=== PATIENT | male | born 1975 | race Caucasian/White ===

== ENCOUNTER 2016-12-26 21:49 | Emergency (ER) | payer MEDICAID | END 2016-12-27 00:56 | disposition home or self-care (01) | DX: R07.89 Other chest pain (principal); I25.2 Old myocardial infarction; Z95.5 Presence of coronary angioplasty implant and graft; Z79.02 Long term (current) use of antithrombotics/antiplatelets; E11.9 Type 2 diabetes mellitus without complications; Z87.891 Personal history of nicotine dependence ==

== ENCOUNTER 2017-01-09 10:18 | Emergency (ER) | payer MEDICAID | END 2017-01-09 12:32 | disposition home or self-care (01) | DX: B86 Scabies (principal); E11.9 Type 2 diabetes mellitus without complications; J45.909 Unspecified asthma, uncomplicated; Z87.891 Personal history of nicotine dependence; I25.2 Old myocardial infarction; Z95.5 Presence of coronary angioplasty implant and graft; Z79.02 Long term (current) use of antithrombotics/antiplatelets ==

== ENCOUNTER 2017-12-10 19:59 | Emergency (ER) | payer SELFPAY ==
[2017-12-10 20:35] LABS: BILIRUBIN,URINE NEGATIVE (NEGATIVE); GLUCOSE, URINE (UA) >=1000 mg/dL (NEGATIVE); KETONES,URINE (UA) NEGATIVE (NEGATIVE); LEUKOCYTE ESTERASE, URINE NEGATIVE (NEGATIVE); NITRITE,URINE NEGATIVE (NEGATIVE); OCCULT BLOOD,URINE SMALL (NEGATIVE); PH,URINE 6.5 PH (5.0-7.5); PROTEIN,URINE 30 mg/dL (NEGATIVE); UROBILINOGEN,URINE 0.2 (NORMAL) E.U./dL (NORMAL)
[2017-12-10 20:36] LABS: BASOPHILS # (AUTO) 0.1 10^3/uL (0.0-0.1); BASOPHILS % (AUTO) 1.2 %; EOSINOPHILS # (AUTO) 0.2 10^3/uL (0.0-0.7); EOSINOPHILS % (AUTO) 2.2 %; HGB - HEMOGLOBIN 15.6 g/dL (14.0-18.0); LYMPHOCYTES % (AUTO) 33.8 %; MEAN CORPUSCULAR HEMOGLOBIN 27.2 pg (27.0-31.0); MEAN CORPUSCULAR HGB CONC 33.6 g/dL (32.0-36.0); MEAN CORPUSCULAR VOLUME 80.9 fL (80.0-94.0); MEAN PLATELET VOLUME 7.6 fL (7.4-11.4); MONOCYTES # (AUTO) 0.5 10^3/uL (0.0-1.0); MONOCYTES % (AUTO) 5.4 %; NEUTROPHILS # (AUTO) 5.1 10^3/uL (1.5-6.6); NEUTROPHILS % (AUTO) 57.4 %; PLT - PLATELET COUNT 293 10^3/uL (130-450); RED BLOOD COUNT 5.74 10^6/uL (4.70-6.10); RED CELL DISTRIBUTION WIDTH 13.5 % (12.0-15.0); WHITE BLOOD COUNT 8.9 x10^3/uL (4.8-10.8)
[2017-12-10 20:39] LABS: CLARITY,URINE CLEAR (CLEAR)
[2017-12-10 20:51] LABS: ALBUMIN 3.9 g/dL (3.2-5.5); ALBUMIN/GLOBULIN RATIO 1.2 (1.0-2.2); BILIRUBIN,TOTAL 0.5 mg/dL (0.2-1.0); CALCIUM 8.9 mg/dL (8.5-10.3); TOTAL PROTEIN 7.1 g/dL (6.7-8.2)
[2017-12-10 20:53] LABS: BACTERIA,URINE None Seen /HPF (None Seen); SPERM,URINE PRESENT; SQUAMOUS EPITHELIAL CELL,UR FEW Squamous (<= Few); TRICHOMONAS,URINE PRESENT (None Seen)
[2017-12-10] MEDS ORDERED: SODIUM CHLORIDE 0.9% 1,000 ML IV STA ×2 (21:36→23:02)
[2017-12-10] MEDS ORDERED: metroNIDAZOLE 250 MG TABLET PO STA (22:07)
[2017-12-10] MEDS ORDERED: metFORMIN 500 MG TABLET PO STA (23:02)
[2017-12-10 23:35] VITALS: BP 148/102
--- NOTE | 2017-12-11 09:33 | ED Physician Documentation ---
History of Present Illness - Stated complaint Stated Complaint: DIABETIC/HBS - Chief complaint Chief Complaint: General - History obtained from History obtained from: Patient - History of Present Illness Timing: Enter time (17:00), Today Pain level max: 0 Pain level now: 0 Improved by: rest Worsened by: standing, ambulating - Additonal information Additional information: since 5 PM today, has been having generalized SEO, lightheadedness with standing. He checked his blood sugar and result was 451. He stopped taking his metformin approximately 1 month ago. Review of Systems Constitutional: denies: Fever, Chills, Sweats Cardiac: reports: Reviewed and negative Respiratory: reports: Reviewed and negative GI: reports: Reviewed and negative : denies: Dysuria, Frequency Neurologic: reports: Headache. denies: Generalized weakness, Focal weakness, Numbness PD PAST MEDICAL HISTORY - Past Medical History Past Medical History: Yes Cardiovascular: MO, Other Respiratory: Asthma Neuro: None Endocrine/Autoimmune: Type 2 diabetes GI: None : None HEENT: None Psych: None Musculoskeletal: None Derm: None - Past Surgical History Past Surgical History: Yes Cardiovascular: Coronary stent - Present Medications Home Medications: Ambulatory Orders Medication Instructions Recorded Confirmed Clopidogrel Bisulfate [Plavix] 75 mg PO DAILY 09/22/15 04/30/16 Albuterol [Ventolin Hfa] 2 puffs INH Q4H PRN #1 inhaler 09/27/15 04/30/16 Magnesium Oxide [Mag Ox] 400 mg PO DAILY #10 tablet 04/30/16 oxyCODONE [Roxicodone] 5 mg PO .FREQ 04/30/16 04/30/16 Ivermectin [Stromectol] 6 tab PO DAILY #30 tablet 01/09/17 Metronidazole [Flagyl] 500 mg PO BID #13 tablet 12/10/17 metFORMIN [Glucophage] 500 mg PO BIDWM #30 tablet 12/10/17 - Allergies Allergies/Adverse Reactions: Allergies Allergy/AdvReac Type Severity Reaction Status Date / Time No Known Drug Allergies Allergy Verified 12/26/16 22:01 - Social History Does the pt smoke?: No Smoking Status: Never smoker Does the pt drink ETOH?: No Does the pt have substance abuse?: No - Immunizations Immunizations are current?: No - POLST Patient has POLST: No PD ED PE NORMAL - Vitals Vital signs reviewed: Yes - General General: Alert and oriented X 3, No acute distress, Well developed/nourished - HEENT HEENT: PERRL, EOMI, Moist mucous membranes - Neck Neck: Supple, no meningeal sign - Cardiac Cardiac: RRR, No murmur - Respiratory Respiratory: No respiratory distress, Clear bilaterally - Abdomen Abdomen: Soft, Non tender - Neuro Neuro: Alert and oriented X 3, order manager 2-12 intact, No motor deficit, No sensory deficit, Normal speech Eye Opening: Spontaneous Motor: Obeys Commands Verbal: Oriented GCS Score: 15 Results - Vitals Vitals: Vital Signs - 24 hr 12/10/17 12/10/17 12/10/17 20:05 21:18 23:34 Temperature 36.5 C 36.6 C Heart Rate 79 71 75 Respiratory 16 18 18 Rate Blood Pressure 178/107 H 155/106 H 148/102 H O2 Saturation 100 97 98 Oxygen O2 Source Room air - Labs Labs: Laboratory Tests 12/10/17 12/10/17 12/10/17 20:14 20:30 20:30 WBC 8.9 RBC 5.74 Hgb 15.6 Hct 46.5 MCV 80.9 MCH 27.2 MCHC 33.6 RDW 13.5 Plt Count 293 MPV 7.6 Neut # 5.1 Lymph # 3.0 [place] # 0.5 Eos # 0.2 Baso # 0.1 Absolute Nucleated RBC 0.01 Nucleated RBC % 0.1 Sodium 133 L Potassium 3.7 Chloride 96 L Carbon Dioxide 27 Anion Gap 10.0 BUN 17 Creatinine 1.0 Estimated GFR (MDRD) 83 L Glucose 370 H POC Whole Bld Glucose Calcium 8.9 Total Bilirubin 0.5 AST 18 ALT 24 Alkaline Phosphatase 57 Total Protein 7.1 Albumin 3.9 Globulin 3.2 Albumin/Globulin Ratio 1.2 Lipase 52 H Urine Color YELLOW Urine Clarity CLEAR Urine pH 6.5 Ur Specific [place] 1.010 Urine Protein 30 H Urine Glucose (UA) >=1000 H Urine Ketones NEGATIVE Urine Occult Blood SMALL H Urine Nitrite NEGATIVE Urine Bilirubin NEGATIVE Urine Urobilinogen 0.2 (NORMAL) Ur Leukocyte Esterase NEGATIVE Urine RBC 11-25 H Urine WBC 4-5 Ur Squamous Epith Cells FEW Squamous Urine Bacteria None Seen Urine Trichomonas PRESENT H Urine Sperm PRESENT Ur Microscopic Review INDICATED Urine Culture Comments NOT INDICATED Serum Ketones 01/25/18 01/25/18 20:30 22:49 WBC RBC Hgb Hct MCV MCH MCHC RDW Plt Count MPV Neut # Lymph # [place] # Eos # Baso # Absolute Nucleated RBC Nucleated RBC % Sodium Potassium Chloride Carbon Dioxide Anion Gap BUN Creatinine Estimated GFR (MDRD) Glucose POC Whole Bld Glucose 293 H Calcium Total Bilirubin AST ALT Alkaline Phosphatase Total Protein Albumin Globulin Albumin/Globulin Ratio Lipase Urine Color Urine Clarity Urine pH Ur Specific [place] Urine Protein Urine Glucose (UA) Urine Ketones Urine Occult Blood Urine Nitrite Urine Bilirubin Urine Urobilinogen Ur Leukocyte Esterase Urine RBC Urine WBC Ur Squamous Epith Cells Urine Bacteria Urine Trichomonas Urine Sperm Ur Microscopic Review Urine Culture Comments Serum Ketones NEGATIVE PD MEDICAL DECISION MAKING - ED course Complexity details: reviewed results, re-evaluated patient, considered differential, d/w patient ED course: Improved FSBS with IV fluids. Also given 500mg PO metformin and provided rx for same. I recommended a second liter of IV fluids, but patient felt well enough to go home without it, which is reasonable considering blood sugar improved to 270 (and should improve further with the metformin). Incidental finding of trichomonas on UA. Patient says he was treated for this approximately one month ago with one-time dose of an antibiotic and that his partner was treated at the same time. Based on uptodate recommendations, rx for 500mg bid flagyl x 1 week provided, first dose in ED Departure - Departure Disposition: 01 Home, Self Care Clinical Impression: Hyperglycemia, Trichomoniasis Condition: Good Instructions: ED Hyperglycemia Diabetic Prescriptions: metFORMIN [Glucophage] 500 mg PO BIDWM #30 tablet Metronidazole [Flagyl] 500 mg PO BID #13 tablet Comments: Follow up with your primary care physician: call to arrange for an appointment within the next 1-2 weeks. Discharge Date/Time: 12/10/17 23:35
== END 2017-12-10 23:35 | disposition home or self-care (01) ==
LOC: ED 19:59
DX: E11.65 Type 2 diabetes mellitus with hyperglycemia (principal); Z79.84 Long term (current) use of oral hypoglycemic drugs; T38.3X6A Underdosing of insulin and oral hypoglycemic [antidiabetic] drugs, initial encounter; Z91.128 Patient's intentional underdosing of medication regimen for other reason; A59.00 Urogenital trichomoniasis, unspecified; I25.2 Old myocardial infarction; J45.909 Unspecified asthma, uncomplicated
CPT/HCPCS: 36415; 80053; 81001; 82009; 83690; 85025; 96360; 99283; 99284; A9270; 81003; 87086